=== PATIENT | female | born 1965 | race Caucasian/White ===

== ENCOUNTER 2016-07-13 14:27 | Emergency (ER) | payer OTHER ==
[~2016-07-13] VITALS: Ht 154.9 cm; Wt 103.3 kg
[~2016-07-13 14:27] MED LIST: ASCO500T16 PO
[2016-07-13 14:39] VITALS: Ht 154.9 cm; Wt 103.3 kg
[2016-07-13] MEDS ORDERED: DEXAMETHASONE SOD INJ 10 MG/ML VIAL IM ONE (15:00)
[2016-07-13] MEDS ORDERED: ALBUT/IPRATROP 3MG/0.5MG NEB 3 ML VIAL INH ONE (15:00)
[2016-07-13 15:12] VITALS: PULSE 68; O2SAT 100
[2016-07-13] MEDS ORDERED: METH1TAB81 PO (15:24)
[2016-07-13] MEDS ORDERED: CITA40TA4 PO (15:24)
[2016-07-13] MEDS ORDERED: FENO54TA PO (15:24)
[2016-07-13] MEDS ORDERED: DOXY1TAB6 PO (15:24)
[2016-07-13] MEDS ORDERED: Ventolin HFA INH (15:24)
[2016-07-13] MEDS ORDERED: AZITTAB PO (15:26)
--- NOTE | 2016-07-13 15:58 | DIAGNOSTIC IMAGING REPORT ---
CHEST 2 VIEWS ROUTINE CLINICAL HISTORY: Cough. COMPARISON STUDY: No previous studies for comparison. FINDINGS: Lung volumes are normal. No pneumothorax or pleural effusion is present. There is no evidence of pulmonary edema. Borderline cardiomegaly is noted. Lungs are clear. IMPRESSION: No acute cardiopulmonary findings. Electronically signed by: Bert Mccormick M.D. 07/13/2016 3:56 PM Dictated Date/Time: 07/13/2016 3:53 PM
[2016-07-13 18:03] VITALS: BP 137/71; PULSE 73; TEMP 36.5; O2SAT 100
--- NOTE | 2016-07-13 20:08 | EMERGENCY ROOM VISIT NOTE ---
History First contact with patient: 14:42 Chief Complaint: RESPIRATORY PROBLEMS Stated Complaint: ASTHMA Nursing Triage Summary: Pt sent by urgent care in [facility] who told her "I need to be admitted because I'm having an asthma attack." Sx for a couple days, worse today. "H/A from coughing." History of Present Illness The patient is a 50 year old female who presents to the Emergency Room with complaints of persistent productive cough, runny nose, sinus congestion and wheezing. The patient reports a history of asthma. She cannot remember the last time she had to use an inhaler. She was seen 3 days ago at an urgent care center in [place]. She was prescribed a Z-Juan and a steroid taper. The patient reports that she did have some mild relief of her symptoms until this morning when she woke up with the same symptoms. She was seen at the urgent care center in [place] and referred here for further evaluation. She denies any chest tightness or chest pain. She has had chills, but has not checked her temperature. She rates her overall discomfort a 9 out of 10. The patient reports that she has never been admitted for an asthma exacerbation. Review of Systems 10 system review was performed and was negative except for pertinent positives and negatives as indicated in history of present illness Past Medical/Surgical History Medical Problems: (1) Asthma (2) Tobacco Use Disorder Surgical Problems: (1) No history of previous surgery Family History Unremarkable Social History Smoking Status: Former Smoker Alcohol Use: none Marital Status: single Housing Status: lives with family Occupation Status: unemployed Current/Historical Medications Scheduled Azithromycin (Zithromax Z-Juan), 1 PKT PO UD Citalopram Hydrobromide (Citalopram Hydrobromide), 40 MG PO DAILY Doxycycline Hyclate (Doxycycline Hyclate), 100 MG PO BID Fenofibrate (Tricor), 54 MG PO DAILY Methylprednisolone (Medrol), 4 MG PO UD Oxcarbazepine (Trileptal), 900 MG PO BID Scheduled PRN [Ventolin HFA], 2 PUFFS INH Q4H PRN for SOB/Wheezing Allergies Coded Allergies: Metronidazole (Verified Allergy, Severe, TOUNGE SWELLING, 04/22/12) Aspirin (Verified Allergy, Intermediate, HIVES, 04/22/12) Penicillins (Verified Allergy, Intermediate, HIVES, 04/22/12) Codeine (Verified Allergy, Mild, HIVES, 04/22/12) Morphine (Verified Allergy, Mild, "TENSES NERVES", 04/22/12) Physical Exam Vital Signs Date Time Temp Pulse Resp B/P Pulse Ox O2 Delivery O2 Flow Rate FiO2 07/13/16 18:03 36.5 73 20 137/71 100 07/13/16 18:02 73 20 137/71 100 Room Air 07/13/16 16:27 82 20 137/63 100 Room Air 07/13/16 15:12 68 20 100 Room Air 07/13/16 15:11 66 22 155/80 97 Room Air 07/13/16 14:39 36.5 84 22 168/90 97 Room Air Physical Exam CONSTITUTIONAL: Healthy and well nourished. Alert and oriented X 3 with positive affect. Patient does not acute any acute respiratory distress. HEENT: Normocephalic, atraumatic. Pupils equal, round and reactive. Ears and nares are clear except for mild bulging of the TMs. No air-fluid levels or serous/purulent effusion. OROPHARYNX: Mild posterior pharyngeal erythema without tonsillar hypertrophy or exudates. NECK: Full active range of motion without discomfort. No JVD or carotid bruits. RESPIRATORY: Clear to auscultation bilaterally with mild end expiratory wheezing. No crackles, rhonchi or stridor. CARDIOVASCULAR: Regular rate and rhythm with no murmurs, rubs or gallops. GASTROINTESTINAL: Bowel sounds present in all quadrants. MUSCULOSKELETAL: Full range of motion of all joints without discomfort. INTEGUMENTARY: No rash or other significant dermatologic conditions noted. HEMATOLOGIC: No ecchymosis or petechiae noted. NEUROLOGIC: No focal neurologic deficits noted. Medical Decision & Procedures ER Provider Diagnostic Interpretation: My interpretation of a two-view chest x-ray does not show any consolidations, pneumothorax or cardiomegaly. Radiologist report is as follows: CHEST 2 VIEWS ROUTINE CLINICAL HISTORY: Cough. COMPARISON STUDY: No previous studies for comparison. FINDINGS: Lung volumes are normal. No pneumothorax or pleural effusion is present. There is no evidence of pulmonary edema. Borderline cardiomegaly is noted. Lungs are clear. IMPRESSION: No acute cardiopulmonary findings. Medications Administered Medications (Trade) Dose Ordered Sig/Jonathan Route Start Time Stop Time Status Last Admin Dose Admin Albuterol/ Ipratropium (Duoneb) 12 ml ONE ONCE INH 07/13/16 15:00 07/13/16 15:01 DC 07/13/16 15:12 12 ML Dexamethasone Sodium Phosphate (Decadron Inj) 10 mg NOW ONCE IM 07/13/16 15:00 07/13/16 15:01 DC 07/13/16 14:58 10 MG ED Course Patient history and physical exam were performed. Nurse's notes were reviewed. Vital signs were reviewed and were normal with an O2 saturation of 97% on room air. The patient is hypertensive. She is not tachycardic or febrile. A two-view chest x-ray does not show any consolidations. An hour-long DuoNeb treatment was administered. Pretreatment peak flow was 200, and post treatment was 250. The patient reports significantly better with the DuoNeb treatment. She feels well enough to go home. The case was further discussed with back to, ED attending physician. I also called the [facility] urgent care center, they report that the patient's O2 saturation on room air at the time of triage was 95%. She did receive a unit dose DuoNeb treatment in our office. They were concerned because she had persistent wheezing, however the patient refused ambulance transport. Because the patient does feel better at this point, I do feel that she can be discharged. She was encouraged to continue her current antibiotics and prednisone as previously prescribed by her PCP. She was encouraged to administer her albuterol home nebulizer every 4 hours. Follow-up with her PCP for close reevaluation in the next 24-48 hours, and return to the emergency department for any significantly worsening symptoms. The patient was happy with plan of care, and voiced understanding of all discharge instructions. Medical Decision At this point, I do not feel the patient requires hospitalist evaluation. She reports an improvement of her symptoms with her DuoNeb treatment. She was instructed to return for any worsening symptoms. I do feel that the patient is at low risk for pulmonary emboli. Her symptoms are most consistent with a recent upper respiratory infection. Impression Primary Impression: Asthmatic bronchitis Departure Information Referrals Chapis Hayes M.D. (PCP) Patient Instructions A Signature Page, My [facility]
[2016-07-13] MEDS ORDERED: SIMV20TA5 PO (22:34)
[2016-07-13] MEDS ORDERED: OXCA300T2 PO (22:34)
[2016-07-13] MEDS ORDERED: CITA20TA9 PO (22:34)
== END 2016-07-13 18:04 | disposition home or self-care (01) ==
LOC: C.EDB 14:29 → C.EDC 18:04
DX: J45.909 Unspecified asthma, uncomplicated (principal); Z87.891 Personal history of nicotine dependence; Z79.899 Other long term (current) drug therapy

== ENCOUNTER 2022-02-25 11:14 | Observation (INO) ==
--- NOTE | 2022-02-25 11:31 | Emergency Department Note ---
Impression & Plan Hypoxemia, Acute kidney injury, Chest pain ED Provider Note NAME: ANILA RIDDLE AGE: 56 SEX: F : 1965 ARRIVES VIA: Ambulance INFORMANT: Patient, ED PROVIDER(S): Anton Urbina MD Chief Complaint: Chest pain HPI: Patient initially begins by stating that she was having some diffuse abdominal pain that began Wednesday was fairly constant with associated nausea vomiting and diarrhea. The patient states that that seemed to resolve last evening. No stream or well water no recent falls or known sick contacts. The patient presented today to urgent care with chest pain and nausea vomiting. Patient does have a remote history of asthma but denies any history of DVT or PE no leg swelling recent surgeries procedures hospitalizations. The patient described chest pain that she had as a heaviness 8 out of 10 in severity was left center center. Unsure as whether or not this was exertional at all. Patient did receive 4 baby aspirin and nitro. This resolved her pain. Patient denies any fevers or chills. The patient had been placed on supplemental nasal cannula oxygen but no documented hypoxemia. Patient denies any alcohol or tobacco use. Patient has no current chest or abdominal pain but does have some slight residual nausea. Patient is not vaccinated for COVID-19 but denies fevers chills cough or sore throat ROS: See HPI for pertinent positives and negatives. A total of 10 systems were revi ewed and otherwise negative. Past medical history: See below Surgical history: See below Social history: See below Physical Exam: GENERAL: NAD, wearing a mask, non-toxic. Obese. EYE EXAM: Normal conjunctiva. PERRL, no anisocoria and EOM's grossly intact w/o pain. NECK: Supple, no nuchal rigidity, no adenopathy, non-tender. No signs of meningismus. FROM of the neck with good chin to chest and neck extension. No stridor. LUNGS: Clear to auscultation. Normal chest wall mechanics. HEART: NSR, no MRG. ABDOMEN: Abdomen soft, non-tender, normo-active bowel sounds, no masses, no rebound or guarding. BACK: No CVA TTP. SKIN: No rashes and no bruising. UPPER EXTREMITIES: Upper extremities are grossly normal. LOWER EXTREMITIES: Grossly normal, no edema. NEURO EXAM: A&O x3, cranial nerves II-XII grossly intact, normal speech, moves all 4 extremities. Differential diagnoses: Cardiac ischemia, aortic dissection, pulmonary embolism, pneumothorax, pneumonia, pericarditis, myocarditis, esophageal rupture, GERD, cholecystitis, pancreatitis, musculoskeletal, as well as other pathologies. Course: Patient was seen and evaluated the bedside. Full history physical exam was performed. EKG interpreted by me Normal sinus rhythm, rate of 70 normal NC and QRS, normal axis prolonged QT Imaging Studies: See Below Cardiac monitoring: An order was placed for continuous cardiac monitoring. The monitor shows a rate of 72 with sinus rhythm. MDM: Patient presented due to concern for chest pain. Currently chest pain-free. Blood work is obtained along with an EKG troponin chest x-ray. COVID swab also obtained in addition to D-dimer. The patient was ordered IV fluids. Patient with no signs of obvious ischemia seen on EKG. Patient has a normal white count H&H and platelet count. The patient's kidney function shows a creatinine 2.3. No priors for comparison. Patient is mildly hypokalemic 3.3. Patient was noted to be hypoxemic at 85 with taken off supplemental nasal cannula. Given the patient's hypoxemia believe the patient would benefit from treatment. The patient was ordered magnesium and Solu- Medrol. No breathing treatments given the chest pain as this may exacerbate any chest pain with beta agonism at this time. Ppatient was ordered additional IV fluids and the patient's blood pressure did improve. D-dimer is not elevated. No signs of DVT on exam. Upon reassessment the patient does feel improved. She is maintaining good saturations on 2 L supplemental nasal cannula. I did speak with MIKHAIL Nguyen and the patient was admitted by Dr. Richards. Critical Care: I have personally spent 35 minutes of critical care time in direct management of this patient. This includes bedside care, interpretation of diagnostic studies, and testing, discussion with consultants, patient, and family members, and other require inpatient management activities. This 35 minutes is in excess of all separately billable procedures. Past Med/Surg History Medical History (Updated 02/25/22 @ 14:07 by Anton Urbina MD) Acute kidney injury Asthma Chest pain Nausea Surgical History No history of previous surgery Social History Smoking Status: Former smoker Feels Safe at Home: Yes Allergies Allergies Allergy/AdvReac Type Severity Reaction Status Date / Time metronidazole Allergy Severe TOUNGE Verified 04/22/12 21:34 SWELLING aspirin Allergy Intermediate HIVES Verified 04/22/12 21:01 Penicillins Allergy Intermediate HIVES Verified 04/22/12 21:34 codeine Allergy Mild HIVES Verified 04/22/12 21:01 morphine Allergy Mild "TENSES Verified 04/22/12 21:01 NERVES" Home Meds Home Medications Medication Instructions Recorded Confirmed atorvastatin 10 mg tablet 10 mg PO HS 02/25/22 02/25/22 duloxetine 60 mg capsule,delayed 120 mg PO DAILY 02/25/22 02/25/22 release ergocalciferol (vitamin D2) 1,250 1,250 mcg PO WK 02/25/22 02/25/22 mcg (50,000 unit) capsule fenofibrate 160 mg tablet 160 mg PO DAILY 02/25/22 02/25/22 hydroxyzine pamoate 25 mg capsule 75 mg PO HS PRN Sleep 02/25/22 02/25/22 lisinopril 20 mg tablet 20 mg PO QAM 02/25/22 02/25/22 nicotine 21 mg/24 hr daily 21 mg transdermal DAILY 02/25/22 02/25/22 transdermal patch nystatin 100,000 unit/gram topical 1 applic topical BID PRN . 02/25/22 02/25/22 powder oxcarbazepine 300 mg tablet 900 mg PO BID 02/25/22 02/25/22 prazosin 1 mg capsule 1 mg PO HS 02/25/22 02/25/22 Results & Data (ED) Vital Signs Vital Signs - 24 hr 02/25/22 11:41 02/25/22 11:41 02/25/22 12:29 Temperature 36.6 C Temperature Source Oral Pulse Rate 64 72 Pulse Rate [Apical] Pulse Rhythm Regular Pulse Rhythm [Apical] Pulse Strength Normal Pulse Strength [Apical] Respiratory Rate 20 20 Respiratory Effort / Characteristics Non-Labored Respiratory Depth Normal Respiratory Pattern Regular Blood Pressure 91/36 L Blood Pressure [Right Arm] Blood Pressure Mean 54 Blood Pressure Mean [Right Arm] Blood Pressure Position Lying Blood Pressure Position [Right Arm] Pulse Oximetry 99 99 99 Oxygen Delivery Method Nasal Cannula Nasal Cannula Nasal Cannula Oxygen Flow Rate 4 4 2 Sepsis Recent Fever Within 48 Hours No Sepsis New/Unexplained Change in Mental Status No Sepsis Action Taken by Nursing No Action Required 02/25/22 12:29 02/25/22 14:00 Temperature Temperature Source Pulse Rate Pulse Rate [Apical] 68 84 Pulse Rhythm Pulse Rhythm [Apical] Regular Regular Pulse Strength Pulse Strength [Apical] Normal Normal Respiratory Rate 18 20 Respiratory Effort / Characteristics Non-Labored Non-Labored Respiratory Depth Normal Normal Respiratory Pattern Regular Regular Blood Pressure Blood Pressure [Right Arm] 91/36 L 109/43 L Blood Pressure Mean Blood Pressure Mean [Right Arm] 54 65 Blood Pressure Position Blood Pressure Position [Right Arm] Lying Pulse Oximetry 99 100 Oxygen Delivery Method Nasal Cannula Nasal Cannula Oxygen Flow Rate 2 2 Sepsis Recent Fever Within 48 Hours Sepsis New/Unexplained Change in Mental Status Sepsis Action Taken by [facility] Medications Current Medication List: was personally reviewed by me Laboratory Data Attestation: I reviewed the patient's lab results. Result diagrams: 02/25/22 11:28 02/25/22 11:28 Lab Results 02/25/22 02/25/22 02/25/22 Range/Units 11:28 11:28 11:28 WBC 9.83 (4.8-10.8) K/ul RBC 4.08 (3.93-5.22) M/uL Hgb 12.5 (12.0-16.0) g/dl Hct 36.3 (34.1-44.9) % MCV 89.0 (80.0-100.0) fL MCH 30.6 (25.0-34.0) pg MCHC 34.4 (32.0-36.0) g/dL RDW Std Deviation 39.0 (36.4-46.3) fL RDW Coeff of Frankie 12.3 (11.5-14.5) % Plt Count 245 (130-400) K/uL MPV 10.0 (9.4-12.3) fL Immature Gran % (Auto) 0.8 % Neut % (Auto) 58.3 % Lymph % (Auto) 27.5 % [place] % (Auto) 11.5 % Eos % (Auto) 1.5 % Baso % (Auto) 0.4 % Neut # (Auto) 5.73 (1.4-6.5) K/uL Lymph # (Auto) 2.70 (1.2-3.4) K/uL [place] # (Auto) 1.13 H (0.24-0.82) K/uL Eos # (Auto) 0.15 (0-0.50) K/uL Baso # (Auto) 0.04 (0-0.2) K/uL Immature Gran # (Auto) 0.08 H (0.00-0.02) K/uL PT 10.5 (9.0-12.0) Seconds INR 1.0 (0.9-1.1) APTT 22.7 (21.0-31.0) Seconds PTT Ratio 0.8 D-Dimer 350 (0-500) ug/L FEU Sodium 136 (136-145) mmol/L Potassium 3.3 L (3.5-5.1) mmol/L Chloride 101 (98-107) mmol/L Carbon Dioxide 24 (21-32) mmol/L Anion Gap 11 (3-11) BUN 27 H (6-23) mg/dl Creatinine 2.36 H (0.6-1.2) mg/dl Est Cr Clr Drug Dosing 34.0 ml/min Est GFR ( Amer) 25.6 ml/min Est GFR (Non-Af Amer) 22.1 ml/min BUN/Creatinine Ratio 11.4 (10-20) Glucose 153 H (70-99(Fasting)) mg/dl Calcium 8.5 (8.5-10.1) mg/dl Total Bilirubin 0.7 (0.2-1.0) mg/dl AST 19 (13-39) U/L ALT 13 (7-52) U/L Alkaline Phosphatase 57 (34-104) U/L Troponin I High Sens 4.7 (0-14) pg/ml Total Protein 6.6 (6.0-8.3) gm/dl Albumin 3.8 (3.4-5.0) gm/dl Globulin 2.8 (2.5-4.0) gm/dl Albumin/Globulin Ratio 1.4 (0.9-2) Lipase 16 (11-82) U/L SARS-CoV-2, RNA, NAAT (NEGATIVE) 02/25/22 Range/Units 12:25 WBC (4.8-10.8) K/ul RBC (3.93-5.22) M/uL Hgb (12.0-16.0) g/dl Hct (34.1-44.9) % MCV (80.0-100.0) fL MCH (25.0-34.0) pg MCHC (32.0-36.0) g/dL RDW Std Deviation (36.4-46.3) fL RDW Coeff of Frankie (11.5-14.5) % Plt Count (130-400) K/uL MPV (9.4-12.3) fL Immature Gran % (Auto) % Neut % (Auto) % Lymph % (Auto) % [place] % (Auto) % Eos % (Auto) % Baso % (Auto) % Neut # (Auto) (1.4-6.5) K/uL Lymph # (Auto) (1.2-3.4) K/uL [place] # (Auto) (0.24-0.82) K/uL Eos # (Auto) (0-0.50) K/uL Baso # (Auto) (0-0.2) K/uL Immature Gran # (Auto) (0.00-0.02) K/uL PT (9.0-12.0) Seconds INR (0.9-1.1) APTT (21.0-31.0) Seconds PTT Ratio D-Dimer (0-500) ug/L FEU Sodium (136-145) mmol/L Potassium (3.5-5.1) mmol/L Chloride (98-107) mmol/L Carbon Dioxide (21-32) mmol/L Anion Gap (3-11) BUN (6-23) mg/dl Creatinine (0.6-1.2) mg/dl Est Cr Clr Drug Dosing ml/min Est GFR ( Amer) ml/min Est GFR (Non-Af Amer) ml/min BUN/Creatinine Ratio (10-20) Glucose (70-99(Fasting)) mg/dl Calcium (8.5-10.1) mg/dl Total Bilirubin (0.2-1.0) mg/dl AST (13-39) U/L ALT (7-52) U/L Alkaline Phosphatase (34-104) U/L Troponin I High Sens (0-14) pg/ml Total Protein (6.0-8.3) gm/dl Albumin (3.4-5.0) gm/dl Globulin (2.5-4.0) gm/dl Albumin/Globulin Ratio (0.9-2) Lipase (11-82) U/L SARS-CoV-2, RNA, NAAT NEGATIVE (NEGATIVE) Administered Medications Discontinued Medications Sodium Chloride (Nss 1000ml) 1,000 mls @ 999 mls/hr IV .Q1H1M STA Stop: 02/25/22 12:39 Last Admin: 02/25/22 12:35 Dose: 999 mls/hr Documented By: [facility] Ondansetron HCl (Ondansetron Inj 2 Mg/Ml 2 Ml Vial) 4 mg IV NOW STA Stop: 02/25/22 11:40 Last Admin: 02/25/22 12:34 Dose: 4 mg Documented By: [facility] Imaging Data Radiologist's Impression: Chest X-Ray 02/25/22 11:39 XR chest 1V portable CLINICAL HISTORY: Atypical chest pain. COMPARISON STUDY: Chest radiograph July 13, 2016. FINDINGS: Lung volumes are normal. Lungs are clear. There is no pneumothorax or pleural effusion. Borderline cardiomegaly is noted. Mediastinal contours are normal. There is no evidence for pulmonary edema. Interstitial prominence is likely within normal limits. IMPRESSION: No acute cardiopulmonary findings. Interstitial prominence, likely within normal limits. ACT 112: Negative or not required by law. Electronically signed by: Bert Mccormick M.D. 02/25/2022 12:14 PM Discharge Plan Visit Data Chief Complaint: Cardiac Assessment ED Provider: Anton Urbina Discharge Problem: Hypoxemia, Acute kidney injury, Chest pain Patient Disposition: Admitted As Inpatient Forms Stand Alone Forms: My [facility] Prescriptions Prescriptions: No Action atorvastatin 10 mg tablet 10 mg PO HS prazosin 1 mg capsule 1 mg PO HS lisinopril 20 mg tablet 20 mg PO QAM oxcarbazepine 300 mg tablet 900 mg PO BID nicotine 21 mg/24 hr patch 24 hour 21 mg transdermal DAILY ergocalciferol (vitamin D2) 1,250 mcg (50,000 unit) capsule 1,250 mcg PO WK nystatin 100,000 unit/gram powder 1 applic TOPICAL BID PRN (Reason: .) hydroxyzine pamoate 25 mg capsule 75 mg PO HS PRN (Reason: Sleep) duloxetine 60 mg capsule,delayed release(DR/EC) 120 mg PO DAILY fenofibrate 160 mg tablet 160 mg PO DAILY Referrals Referrals: PCP,NO [Physician] -
[2022-02-25] MEDS ORDERED: SODIUM CHLORIDE 0.9% 1000ML 1,000 ML IV STA (11:39)
[2022-02-25] MEDS ORDERED: ONDANSETRON INJ 2 MG/ML 2 ML VIAL IV STA (11:39)
--- NOTE | 2022-02-25 12:15 | XRay Report ---
XR chest 1V portable CLINICAL HISTORY: Atypical chest pain. COMPARISON STUDY: Chest radiograph July 13, 2016. FINDINGS: Lung volumes are normal. Lungs are clear. There is no pneumothorax or pleural effusion. Bor derline cardiomegaly is noted. Mediastinal contours are normal. There is no evidence for pulmonary ed barbara. Interstitial prominence is likely within normal limits. IMPRESSION: No acute cardiopulmonary findings. Interstitial prominence, likely within normal limits. ACT 112: Negative or not required by law. Electronically signed by: Bert Mccormick M.D. 02/25/2022 12:14 PM
[2022-02-25 12:17] LABS: Basophils # (auto) 0.04 K/uL (0-0.2); Basophils % (auto) 0.4 %; Eosinophils # (auto) 0.15 K/uL (0-0.50); Eosinophils % (auto) 1.5 %; Hematocrit (blood only) 36.3 % (34.1-44.9); Hemoglobin 12.5 g/dl (12.0-16.0); Immature Granulocytes # (auto) 0.08 K/uL (0.00-0.02); Immature Granulocytes % (auto) 0.8 %; Lymphocytes % (auto) 27.5 %; Mean Corpuscular Hemoglobin 30.6 pg (25.0-34.0); Mean Corpuscular Hgb Conc 34.4 g/dL (32.0-36.0); Monocytes # (auto) 1.13 K/uL (0.24-0.82); Monocytes % (auto) 11.5 %; Neutrophils # (auto) 5.73 K/uL (1.4-6.5); Neutrophils % (auto) 58.3 %; Platelet Count 245 K/uL (130-400); RDW Coefficient of Variation 12.3 % (11.5-14.5); Red Blood Count 4.08 M/uL (3.93-5.22); White Blood Count 9.83 K/ul (4.8-10.8)
[2022-02-25 12:29] LABS: D Dimer 350 ug/L FEU (0-500); Partial Thromboplastin Ratio 0.8; Partial Thromboplastin Time 22.7 Seconds (21.0-31.0); Prothrombin Time 10.5 Seconds (9.0-12.0)
[2022-02-25 12:34] LABS: Troponin I High Sensitivity 4.7 pg/ml (0-14)
[2022-02-25 12:39] LABS: Albumin Globulin Ratio 1.4 (0.9-2); Albumin Level 3.8 gm/dl (3.4-5.0); BUN Creatinine Ratio 11.4 (10-20); Bilirubin,Total 0.7 mg/dl (0.2-1.0); Calcium 8.5 mg/dl (8.5-10.1); Est GFR (African American) 25.6 ml/min; Est GFR (Non-African American) 22.1 ml/min; Globulin 2.8 gm/dl (2.5-4.0); Potassium 3.3 mmol/L (3.5-5.1); Total Protein 6.6 gm/dl (6.0-8.3)
--- NOTE | 2022-02-25 13:06 | History & Physical Report ---
Date of Service February 25, 2022 Assessment & Plan (1) Abdominal pain: (2) Acute kidney injury: (3) Nausea and vomiting: (4) Chest pain: (5) Diarrhea: (6) Hypoxemia: (7) Seizures: (8) Hyperlipidemia: (9) HTN (hypertension): Plan Ms. Osman is a 56 year old female who presented with N/V/D, abdominal discomfort and chest pain. D-Dimer negative and no EKG changes. Trop trending. Abd CT ordered and acute symptom management. IV fluids and e-lyte replacement. Plan to return home after DC. Abdominal Pain Nausea and Vomiting Diarrhea: Diffused abdominal tenderness since Wednesday Abdominal CT without contrast ordered IV fluids 0.9% + 20 KCL @ 125ml/Hour K+: 3.3 Add 2 K riders. Recheck K+ level at 2100 1G Mg+ infused in ED. Nausea improved with IV Zofran; last emesis 02/23 @ 0400. Will cover empirically with IV abx (has PCN and Metronidazole allergy) Stool culture ordered Acute Kidney Injury: likely related to dehydration; current creatinine 2.36 Baseline Creatinine 10/24: 0.6 Start Fluid maintenance: 0.9% NS + 20mEq KCL @ 125ml/hour Received 1L bolus in ED Chest Pain: Resolved. Chest pain 02/11 across anterior chest. D-Dimer negative 350 EMS gave 4 oral baby ASA and nitro spray SL which eliminated the chest pain Will trend Troponin levels; initial troponin 4.7 No EKG changes, QTc 496. Repeat EKG in AM. Hypoxemia: CXR negative Has H/O asthma - has Albuterol PRN or rescue at home. Has not used in over a month Will hold on giving breathing treatment until chest pain fully resolved. 2LNC 100% CXR in AM covid negative H/O Seizures: Sees Dr. Cespedes outpatient. Takes Trileptal; 900 mg PO BID; monitor renal function. Discussed with Pharmacy; no need to dose adjust yet unless CrCL < 30 or worsening urine output. Has not had any seizure active x3 years HTN: Takes Lisinopril; hold until renal function improved Takes Prazosin; hold as pt received IV fluids and was hypotensive in ED. Reevaluate restarting in AM. Hyperlipidemia: Stable: Continue Atorvastatin and Fenofibrate Depression: Takes Cymbalta. Disposition: Code Status: Full code PCP: Dr. Peguero VTE Prophylaxis: Heparin SQ Next of Kin/Contact: Shonna Welsh (Niece): [phone] Plan to return home at [place] History of Present Illness Chief Complaint: abdominal and chest pain Primary Care Provider: Mark Orozco PA-C Ms. Osman is a 56 year old female who presented to the [facility] ED from Urgent Care with N/V/D and associated chest pain. The patient states that her abdominal discomfort started on Wednesday evening around 1800 and by midnight Wednesday morning 02/24, she had been experiencing vomiting and diarrhea reportedly 12 times on Wednesday. She reports dark green. Her last episode of emesis was Friday 02/23 at 0400. Currently still having diarrhea. She has not eaten anything, but is able to keep Gatorade and some water down. This morning, she got up around 0700 and she started to feel that an 'elephant was sitting on her chest' and was having tightness in her chest. She then proceeded to urgent care and they sent her to [facility] via EMS. EMS gave 4 oral baby ASA and nitro spray SL which eliminated the chest pain. She was feeling some nausea but the Zofran has helped. She has not had any vomiting since she has been here. She has an additional PMH that includes seizures, HLD, Depression, HTN, obesity, and tobacco use. She has not had a seizure for at least 3 years. She does follow with Dr. Cespedes with Neurology. Currently, she is lying in her bed, in no apparent distress. She denies VALENCIA, dizziness, palpitations, chest pain, palpitations, visual or hearing changes, swelling, wheezing. Patient will be admitted under medicine services for further evaluation and management. Please see A/P for further details. Allergies Allergy/AdvReac Type Severity Reaction Status Date / Time bee venom protein (honey bee) Allergy Severe Anaphylaxis Unverified 02/25/22 14:33 metronidazole Allergy Severe TOUNGE Verified 02/25/22 14:33 SWELLING Penicillins Allergy Severe Anaphylaxis Verified 02/25/22 14:40 aspirin Allergy Intermediate HIVES Verified 02/25/22 14:33 codeine Allergy Mild HIVES Verified 02/25/22 14:33 morphine Allergy Mild "TENSES Verified 02/25/22 14:33 NERVES" Home Medications Medication Instructions Recorded Confirmed Type atorvastatin 10 mg tablet 10 mg PO HS 02/25/22 02/25/22 History duloxetine 60 mg capsule,delayed 120 mg PO HS 02/25/22 02/25/22 History release fenofibrate 160 mg tablet 160 mg PO HS 02/25/22 02/25/22 History lisinopril 20 mg tablet 20 mg PO HS 02/25/22 02/25/22 History nicotine 21 mg/24 hr daily 21 mg transdermal DAILY 02/25/22 02/25/22 History transdermal patch nystatin 100,000 unit/gram topical 1 applic topical BID PRN yeast 02/25/22 02/25/22 History powder infection oxcarbazepine 300 mg tablet 900 mg PO BID 02/25/22 02/25/22 History prazosin 1 mg capsule 1 mg PO HS 02/25/22 02/25/22 History cetirizine 10 mg tablet 10 mg PO QAM 14 days #14 tabs 02/27/22 Rx Past Med/Surg History Medical History Abdominal pain Acute kidney injury Asthma Chest pain Diarrhea Diarrhea HTN (hypertension) Hyperlipidemia Nausea Nausea and vomiting Seizures Surgical History No history of previous surgery Social History Smoking Status: Former smoker Hx Alcohol Use: No Hx Substance Use: No Preferred Language: Malawian Ed Case Manager Required: No Beliefs That Will Affect Care: None Current Living Situation: Family Feels Safe at Home: Yes Assistive Devices: None Review of Systems Review of Systems: Neuro: (-) Falls, trauma, slurred speech HEENT: (-) VALENCIA, dizziness, dysphagia, visual or auditory changes CV: (-) CP, palpitations, swelling Resp: (-) SOB (-) wheezine GI: (-) appetite changes, (+) N/V/D. : (-) urinary changes Skin: (-) rashes Psych: (-) anxiety, (+) depression Physical Exam Physical Exam: Neuro: AAOx4, PERRLA, no aphagia, memory changes, CNII-XII grossly intact HEENT: head normocephalic, moist mucus membranes CV: S1/S2, (-) M/G/R, (-) edema, cap refill < 3 seconds Resp: Lungs CTA in all coreas. On RA GI: Abdomen large S/distended, tender with palpation in lower quadrants, Ax4 bowel sounds, (-) CVA tenderness Musculoskeletal: 5/5 B/L UE strength, 5/5 B/L LE strength. No gait disturbance Skin: (-) rashes , (-) erythema. Psych: euthymic mood Results & Data Results & Data ([facility]) Vital Signs (Past 12 Hours) Vital Signs Temp Pulse Pulse Resp BP BP Pulse Ox 02/25/22 12:29 68 18 91/36 L 99 02/25/22 12:29 36.6 C 72 20 91/36 L 99 02/25/22 11:41 64 20 99 02/25/22 11:41 99 O2 Del Method O2 Flow Rate 02/25/22 12:29 Nasal Cannula 2 02/25/22 12:29 Nasal Cannula 2 02/25/22 11:41 Nasal Cannula 4 02/25/22 11:41 Nasal Cannula 4 Laboratory Results Short CBC 02/25/22 Range/Units 11:28 WBC 9.83 (4.8-10.8) K/ul Hgb 12.5 (12.0-16.0) g/dl Hct 36.3 (34.1-44.9) % Plt Count 245 (130-400) K/uL BMP 02/25/22 11:28 Sodium 136 Potassium 3.3 L Chloride 101 Carbon Dioxide 24 BUN 27 H Creatinine 2.36 H Glucose 153 H Calcium 8.5 Liver Function 02/25/22 Range/Units 11:28 Total Bilirubin 0.7 (0.2-1.0) mg/dl AST 19 (13-39) U/L ALT 13 (7-52) U/L Alkaline Phosphatase 57 (34-104) U/L Albumin 3.8 (3.4-5.0) gm/dl Diagnostic Findings Chest X-Ray 02/25/22 11:39 XR chest 1V portable CLINICAL HISTORY: Atypical chest pain. COMPARISON STUDY: Chest radiograph July 13, 2016. FINDINGS: Lung volumes are normal. Lungs are clear. There is no pneumothorax or pleural effusion. Borderline cardiomegaly is noted. Mediastinal contours are normal. There is no evidence for pulmonary edema. Interstitial prominence is likely within normal limits. IMPRESSION: No acute cardiopulmonary findings. Interstitial prominence, likely within normal limits. ACT 112: Negative or not required by law. Electronically signed by: Bert Mccormick M.D. 02/25/2022 12:14 PM ECG Additional Comments: NSR Vent. Rate : 070 BPM P-R Int : 144 ms QRS Dur : 090 ms QT Int : 460 ms QTc Int : 496 ms Code Status & VTE Plan Code Status Full code in the event of cardiac or respiratory arrest VTE Prophylaxis Plan VTE Prophylaxis will be ordered: Yes Supervising Physician Co-Signing Physician Notes Attending Addendum: delayed entry date of service noted above care coordinated with MIKHAIL Angel please refer to her notes for full details, I agree with her notes patient seen and examined, records reviewed by myself as well on exam, patient seen resting in bed, comfortable has mild abd discomfort no other symptoms diagnoses and plan of care as per MIKHAIL Angel's notes Cole Richards MD
[2022-02-25] MEDS ORDERED: methylPREDNISolone 125 MG/2 ML VIAL IV STA (13:12)
[2022-02-25] MEDS ORDERED: MAGNESIUM SULFATE / D5W 1 GM/100 ML BAG IV STA (13:12)
[2022-02-25] MEDS ORDERED: SODIUM CHLORIDE 0.9% 1000ML 1,000 ML IV ONE (13:12)
--- NOTE | 2022-02-25 13:18 | Electrocardiogram Report ---
Test Reason : Blood Pressure : / mmHG Vent. Rate : 070 BPM Atrial Rate : 070 BPM P-R Int : 144 ms QRS Dur : 090 ms QT Int : 460 ms P-R-T Axes : 060 045 068 degrees QTc Int : 496 ms Normal sinus rhythm Low voltage QRS Abnormal ECG No previous ECGs available Confirmed by Remington Corona ([id number]) on 02/25/2022 1:18:35 PM Referred By: REFERRED SELF Confirmed By:Remington Corona
[2022-02-25] MEDS: POTASSIUM CHLORIDE / WTR 10 MEQ/100 ML PLCT IV SCH ×2 (15:31→16:49)
--- NOTE | 2022-02-25 16:36 | CT Scan Report ---
CT OF THE ABDOMEN WITHOUT CONTRAST CLINICAL HISTORY: Upper abdominal pain. COMPARISON STUDY: No previous studies for comparison. TECHNIQUE: Axial images of the abdomen were obtained without IV contrast. Automated exposure control was utilized for the study. A dose lowering technique was utilized adhering to the principles of ALA RA. FINDINGS: Lung bases are unremarkable. No pneumatosis, free air or portal venous gas is identified wi thin the abdomen. Evaluation of the abdomen is suboptimal on this unenhanced exam. There is no biliar y ductal dilatation status post cholecystectomy. There is hepatic steatosis. The spleen, adrenal glan ds and pancreas are unremarkable as is the left kidney. There is no hydronephrosis. A water attenuati on 3.3 cm lesion within the upper pole of the right kidney is suboptimally assessed on this unenhance d exam but likely reflects a cyst. There is no abdominal lymphadenopathy or ascites. There is mild di latation of several small bowel loops, measuring up to 4.1 cm. The small bowel is partially imaged on this examination. No acute fracture or suspicious lesion within the visualized skeletal structures i s present. IMPRESSION: 1. Several loops of mildly dilated small bowel, partially imaged on this abdominal CT. No transition point identified. The findings do not suggest a small bowel obstruction however if persistent symptom s, follow-up KUB or CT of the abdomen and pelvis is recommended. 2. Hepatic steatosis. ACT 112: Negative or not required by law. Electronically signed by: Bert Mccormick M.D. 02/25/2022 4:35 PM
[2022-02-25] MEDS ORDERED: ALUMINUM/MAGNESIUM SUSP 30 ML UDC PO PRN (18:13)
[2022-02-25] MEDS ORDERED: PANTOprazole 40 MG in SYRINGE 0 ML IV ONE (18:13)
[2022-02-25] MEDS ORDERED: CETIRIZINE HCL 10 MG TABLET PO ONE (18:13)
[2022-02-25] MEDS ORDERED: diphenhydrAMINE Capsule 25 MG CAP PO PRN (18:13)
[2022-02-25] MEDS ORDERED: NYSTATIN POWDER 15GM BTL EXT PRN (18:13)
[2022-02-25] MEDS ORDERED: diphenhydrAMINE 50 MG/ML VIAL IV STA (18:13)
[2022-02-25] MEDS: NSS + 20MEQ KCL 20 MEQ/1,000 ML BAG IV SCH (18:49)
[2022-02-25] MEDS ORDERED: ERGOCALCIFEROL 50,000 UNITS 1250 MCG CAP PO SCH (20:00)
[2022-02-25] MEDS: HEPARIN SOD 5,000 UNIT/0.5 ML VIAL SQ SCH (21:33)
[2022-02-25] MEDS: OXcarbazepine 150 MG TABLET PO SCH (21:34)
[2022-02-25] MEDS: DULoxetine HCL 60 MG CAP PO SCH (21:34)
[2022-02-25] MEDS: PROMETHAZINE HCL 12.5 MG in SODIUM CHLORIDE 0.9% 50 ML IV PRN (22:24)
[2022-02-26] MEDS: NSS + 20MEQ KCL 20 MEQ/1,000 ML BAG IV SCH ×3 (03:22→20:02)
[2022-02-26] MEDS: HEPARIN SOD 5,000 UNIT/0.5 ML VIAL SQ SCH ×3 (06:14→21:41)
[2022-02-26 06:34] LABS: Basophils # (auto) 0.03 K/uL (0-0.2); Basophils % (auto) 0.3 %; Eosinophils # (auto) 0.08 K/uL (0-0.50); Eosinophils % (auto) 0.9 %; Hematocrit (blood only) 33.4 % (34.1-44.9); Hemoglobin 11.4 g/dl (12.0-16.0); Immature Granulocytes # (auto) 0.06 K/uL (0.00-0.02); Immature Granulocytes % (auto) 0.7 %; Lymphocytes # (auto) 2.41 K/uL (1.2-3.4); Lymphocytes % (auto) 26.4 %; Mean Corpuscular Hemoglobin 30.6 pg (25.0-34.0); Mean Corpuscular Hgb Conc 34.1 g/dL (32.0-36.0); Mean Corpuscular Volume 89.8 fL (80.0-100.0); Mean Platelet Volume 9.6 fL (9.4-12.3); Monocytes # (auto) 0.87 K/uL (0.24-0.82); Monocytes % (auto) 9.5 %; Neutrophils # (auto) 5.68 K/uL (1.4-6.5); Neutrophils % (auto) 62.2 %; Platelet Count 221 K/uL (130-400); RDW Coefficient of Variation 11.9 % (11.5-14.5); RDW Standard Deviation 38.8 fL (36.4-46.3); Red Blood Count 3.72 M/uL (3.93-5.22); White Blood Count 9.13 K/ul (4.8-10.8)
[2022-02-26 06:56] LABS: Estimated Average Glucose 123 mg/dl; Hemoglobin A1C 5.9 % (4.5-5.6)
[2022-02-26 07:16] LABS: BUN Creatinine Ratio 23.3 (10-20); Creatinine Clr Calc Pharmacy 89.8 ml/min; Est GFR (African American) 82.3 ml/min; Magnesium 2.1 mg/dl (1.7-2.4); Phosphorus 2.9 mg/dl (2.5-4.9); Potassium 3.8 mmol/L (3.5-5.1)
[2022-02-26] MEDS: CETIRIZINE HCL 10 MG TABLET PO SCH (10:13)
[2022-02-26] MEDS: OXcarbazepine 150 MG TABLET PO SCH ×2 (10:13→20:02)
[2022-02-26] MEDS: PANTOprazole 40 MG in SYRINGE 0 ML IV SCH (10:14)
[2022-02-26] MEDS: NICOTINE 21 MG/24 HR TDSY TD SCH (10:15)
[2022-02-26 11:27] LABS: Adenovirus F 40/41 PCR Not Detected (NotDetected); Astrovirus PCR Not Detected (NotDetected); Campylobacter PCR Not Detected (NotDetected); Clostridium diff Toxin A/B PCR Not Detected (NotDetected); Cryptosporidium PCR Not Detected (NotDetected); Cyclospora cayetanensis PCR Not Detected (NotDetected); Entamoeba histolytica PCR Not Detected (NotDetected); Enteroaggregative E.coli(EAEC) Not Detected (NotDetected); Enteropathogenic E.coli (EPEC) Not Detected (NotDetected); Enterotoxigenic E.coli (ETEC) Not Detected (NotDetected); Giardia lamblia PCR Not Detected (NotDetected); Norovirus GI/GII PCR Not Detected (NotDetected); Plesiomonas shigelloides PCR Not Detected (NotDetected); Rotavirus A PCR Not Detected (NotDetected); Salmonella PCR Not Detected (NotDetected); Sapovirus PCR Not Detected (NotDetected); Shiga-like Toxin E.coli (STEC) Not Detected (NotDetected); Shigella/Enteroinvasive E.coli Not Detected (NotDetected); Vibrio cholerae PCR Not Detected (NotDetected); Vibrio species PCR Not Detected (NotDetected); Yersinia enterocolitica PCR Not Detected (NotDetected)
[2022-02-26] MEDS: PROMETHAZINE HCL 12.5 MG in SODIUM CHLORIDE 0.9% 50 ML IV PRN (13:07)
--- NOTE | 2022-02-26 15:12 | Electrocardiogram Report ---
Test Reason : Blood Pressure : / mmHG Vent. Rate : 070 BPM Atrial Rate : 070 BPM P-R Int : 156 ms QRS Dur : 094 ms QT Int : 454 ms P-R-T Axes : 055 009 050 degrees QTc Int : 490 ms Normal sinus rhythm Normal ECG When compared with ECG of 25-FEB-2022 11:28, No significant change was found Confirmed by Remington Corona ([id number]) on 02/26/2022 3:12:27 PM Referred By: REFERRED SELF Confirmed By:Remington Corona
[2022-02-26] MEDS: LOPERAMIDE HCL 2 MG CAP PO PRN (15:59)
--- NOTE | 2022-02-26 17:06 | Hospitalist Progress Note ---
Date of Service February 26, 2022 Assessment & Plan (1) Abdominal pain: (2) Acute kidney injury: (3) Nausea and vomiting: (4) Chest pain: (5) Diarrhea: (6) Hypoxemia: (7) Seizures: (8) Hyperlipidemia: (9) HTN (hypertension): Plan Per admitting service notes with addendum: Ms. Osman is a 56 year old female who presented with N/V/D, abdominal discomfort and chest pain. D-Dimer negative and no EKG changes. Trop trending. Abd CT ordered and acute symptom management. IV fluids and e-lyte replacement. Plan to return home after DC. Abdominal Pain Nausea and Vomiting, Diarrhea: Diffused abdominal tenderness since Wednesday Abdominal CT without contrast: 1. Several loops of mildly dilated small bowel, partially imaged on this abdominal CT. No transition point identified. The findings do not suggest a small bowel obstruction however if persistent symptoms, follow-up KUB or CT of the abdomen and pelvis is recommended. 2. Hepatic steatosis. Stool PCR panel: Negative Electrolytes replaced Hold off on antibiotics Start as needed Imodium Continue IV fluids Monitor closely, if no improvement tomorrow, will consult GI Acute Kidney Injury, resolved likely related to dehydration; current creatinine 2.36 Baseline Creatinine 10/24: 0.6 Given IV fluids Creatinine now 0.9 Chest Pain, acute coronary syndrome ruled out Resolved. Chest pain 8/10 across anterior chest D-Dimer negative 350 EMS gave 4 oral baby ASA and nitro spray SL which eliminated the chest pain Troponins negative No EKG changes, QTc 496 -- Likely secondary to nausea and vomiting, Protonix ordered Hypoxemia, resolved CXR negative Has H/O asthma - has Albuterol PRN or rescue at home. Has not used in over a month covid negative H/O Seizures: Sees Dr. Cespedes outpatient. Takes Trileptal; 900 mg PO BID; monitor renal function. Discussed with Pharmacy; no need to dose adjust yet unless CrCL < 30 or worsening urine output. Has not had any seizure active x3 years HTN: Resume lisinopril Hold prazosin Hyperlipidemia: Stable: Continue Atorvastatin and Fenofibrate Depression: Takes Cymbalta. Disposition: Code Status: Full code PCP: Dr. Peguero VTE Prophylaxis: Heparin SQ Next of Kin/Contact: Shonna Welsh (Niece): [phone] Plan to return home at [place] Admission and Anticipated Discharge Date Admission Date: February 25, 2022 Subjective Follow-up for diarrhea, etc. Seen resting in bed, comfortable, not in distress States she feels somewhat better today compared to yesterday Although diarrhea has returned today, 4 times since this morning, nonbloody Reports occasional nausea, only tolerating small amounts of clears today Reports some pain with p.o. diet No chest pain, shortness of breath, palpitations, dizziness No other symptoms Review of Systems Review of Systems: all noted and negative except for above Physical Exam Physical Exam: General- oriented x 3, not in distress, speaks in sentences with no effort or accessory muscle use Eyes- anicteric Neck- no JVD Lungs- clear breath sounds bilaterally, no rales/wheezes Heart- normal rate, regular rhythm; no murmurs Abdomen- normal bowel sounds, nondistended, soft, mild tenderness in all quadrants Extremities- no pretibial edema, no calf tenderness Neuro- alert, oriented x 3; no gross focal neurologic deficits Skin- warm & dry Results & Data Results & Data ([facility]) Vital Signs (Past 12 Hours) Vital Signs Temp Pulse Pulse Resp BP Pulse Ox O2 Del Method 02/26/22 16:21 36.8 C 67 20 144/84 H 95 Room Air 02/26/22 15:30 65 02/26/22 11:47 36.7 C 73 20 131/88 97 Room Air 02/26/22 09:40 74 02/26/22 09:22 Room Air 02/26/22 07:20 36.6 C 69 20 139/82 94 Room Air all noted and reviewed including below
[2022-02-26] MEDS: DULoxetine HCL 60 MG CAP PO SCH (20:03)
[2022-02-27] MEDS ORDERED: HYDROCORTISONE HC 2.5% CRM 30GM TUBE EXT PRN (01:38)
[2022-02-27] MEDS: LOPERAMIDE HCL 2 MG CAP PO PRN (02:48)
[2022-02-27] MEDS: NSS + 20MEQ KCL 20 MEQ/1,000 ML BAG IV SCH ×2 (04:32→10:56)
[2022-02-27] MEDS: HEPARIN SOD 5,000 UNIT/0.5 ML VIAL SQ SCH ×2 (05:32→14:10)
--- NOTE | 2022-02-27 08:03 | Electrocardiogram Report ---
Test Reason : Blood Pressure : / mmHG Vent. Rate : 066 BPM Atrial Rate : 066 BPM P-R Int : 146 ms QRS Dur : 098 ms QT Int : 444 ms P-R-T Axes : 057 018 055 degrees QTc Int : 465 ms Normal sinus rhythm Low voltage QRS Borderline ECG When compared with ECG of 26-FEB-2022 03:26, No significant change was found Confirmed by Remington Corona ([id number]) on 02/27/2022 8:03:15 AM Referred By: REFERRED SELF Confirmed By:Remington Corona
[2022-02-27] MEDS: CETIRIZINE HCL 10 MG TABLET PO SCH (08:38)
[2022-02-27] MEDS: OXcarbazepine 150 MG TABLET PO SCH (08:38)
[2022-02-27] MEDS: NICOTINE 21 MG/24 HR TDSY TD SCH (08:39)
[2022-02-27 09:17] LABS: Basophils # (auto) 0.03 K/uL (0-0.2); Basophils % (auto) 0.5 %; Eosinophils # (auto) 0.13 K/uL (0-0.50); Eosinophils % (auto) 2.1 %; Hematocrit (blood only) 32.1 % (34.1-44.9); Hemoglobin 10.6 g/dl (12.0-16.0); Immature Granulocytes # (auto) 0.06 K/uL (0.00-0.02); Lymphocytes # (auto) 2.59 K/uL (1.2-3.4); Mean Corpuscular Hemoglobin 30.1 pg (25.0-34.0); Mean Corpuscular Volume 91.2 fL (80.0-100.0); Mean Platelet Volume 9.4 fL (9.4-12.3); Monocytes # (auto) 0.52 K/uL (0.24-0.82); Monocytes % (auto) 8.4 %; Neutrophils # (auto) 2.83 K/uL (1.4-6.5); Platelet Count 209 K/uL (130-400); RDW Coefficient of Variation 12.2 % (11.5-14.5); Red Blood Count 3.52 M/uL (3.93-5.22); White Blood Count 6.16 K/ul (4.8-10.8)
[2022-02-27 09:44] LABS: Albumin Globulin Ratio 1.5 (0.9-2); Albumin Level 3.5 gm/dl (3.4-5.0); BUN Creatinine Ratio 20.3 (10-20); Bilirubin,Total 0.3 mg/dl (0.2-1.0); Calcium 7.8 mg/dl (8.5-10.1); Creatinine Clr Calc Pharmacy 119.5 ml/min; Est GFR (Non-African American) 96.6 ml/min; Globulin 2.3 gm/dl (2.5-4.0); Magnesium 1.9 mg/dl (1.7-2.4); Phosphorus 2.6 mg/dl (2.5-4.9); Potassium 4.1 mmol/L (3.5-5.1); Total Protein 5.8 gm/dl (6.0-8.3)
[2022-02-27] MEDS: PANTOprazole 40 MG in SYRINGE 0 ML IV SCH (10:56)
[2022-02-27] MEDS ORDERED: CALCIUM CARBONATE 1250MG TAB PO SCH (11:30)
[2022-02-27] MEDS ORDERED: PRAZOSIN HCL 1 MG CAP PO ONE (11:45)
[2022-02-27] MEDS ORDERED: lisinopril 20 MG TAB PO ONE (12:00)
--- NOTE | 2022-02-27 13:51 | Ultrasound Report ---
RIGHT UPPER EXTREMITY VENOUS DOPPLER ULTRASOUND CLINICAL HISTORY: pain, swelling, r/o dvt COMPARISON STUDY: No previous studies for comparison. TECHNIQUE: Sonography of the deep venous system of the right upper extremity was performed. FINDINGS: The right internal jugular, subclavian, axillary, brachial, radial and ulnar veins are hernández nt. The right cephalic and basilic veins are patent. No venous thrombus is identified within the righ t upper extremity. IMPRESSION: No deep venous within the right upper extremity. ACT 112: Negative or not required by law. Electronically signed by: Bert Mccormick M.D. 02/27/2022 1:49 PM
--- NOTE | 2022-02-27 14:14 | Hospitalist Progress Note ---
Date of Service February 27, 2022 Assessment & Plan (1) Abdominal pain: (2) Acute kidney injury: (3) Nausea and vomiting: (4) Chest pain: (5) Diarrhea: (6) Hypoxemia: (7) Seizures: (8) Hyperlipidemia: (9) HTN (hypertension): Plan Per admitting service notes with addendum: Ms. Osman is a 56 year old female who presented with N/V/D, abdominal discomfort and chest pain. D-Dimer negative and no EKG changes. Trop trending. Abd CT ordered and acute symptom management. IV fluids and e-lyte replacement. Plan to return home after DC. Abdominal Pain Nausea and Vomiting, Diarrhea Diffused abdominal tenderness since Wednesday Abdominal CT without contrast: 1. Several loops of mildly dilated small bowel, partially imaged on this abdominal CT. No transition point identified. The findings do not suggest a small bowel obstruction however if persistent symptoms, follow-up KUB or CT of the abdomen and pelvis is recommended. 2. Hepatic steatosis. Stool PCR panel: Negative Electrolytes replaced resolved with PRN Imodium Acute Kidney Injury, resolved likely related to dehydration; current creatinine 2.36 Baseline Creatinine 10/24: 0.6 Given IV fluids Creatinine now 0.9 Chest Pain, acute coronary syndrome ruled out Resolved. Chest pain 8/10 across anterior chest D-Dimer negative 350 EMS gave 4 oral baby ASA and nitro spray SL which eliminated the chest pain Troponins negative No EKG changes, QTc 496 -- Likely secondary to nausea and vomiting, Protonix ordered, resolved Hypoxemia, resolved CXR negative Has H/O asthma - has Albuterol PRN or rescue at home. Has not used in over a month covid negative H/O Seizures: Sees Dr. Cespedes outpatient. Takes Trileptal; 900 mg PO BID; monitor renal function. Discussed with Pharmacy; no need to dose adjust yet unless CrCL < 30 or worsening urine output. Has not had any seizure active x3 years HTN: Resume lisinopril and prazosin Hyperlipidemia: Stable: Continue Atorvastatin and Fenofibrate Depression: Takes Cymbalta. Rash chest, arms chronic per patient, intermittent Zyrtec daily outpatient ff up Disposition: Code Status: Full code PCP: Dr. Peguero VTE Prophylaxis: Heparin SQ Next of Kin/Contact: Shonna Welsh (Niece): [phone] d/c home ff up with PCP in 1 week plan of care discussed with patient in detail and at length all questions answered she is understanding, agreeable, comfortable with the plan of care Admission and Anticipated Discharge Date Admission Date: February 25, 2022 Subjective ff up for nausea/vomiting, diarrhea, etc seen resting in bed, comfortable sitting up, in good spirits states she feels better overall diarrhea, abdominal pain, nausea/vomiting, resolved no chest pain, dyspnea, palpitations, dizziness has mild pain, erythema on the r antecubital fossa area no other symptoms Review of Systems Review of Systems: all noted and negative except for above Physical Exam Physical Exam: General- oriented x 3, not in distress, speaks in sentences with no effort or accessory muscle use Eyes- anicteric Neck- no JVD Lungs- clear BS bilaterally, no rales/wheezes Heart- normal rate, regular rhythm; no murmurs Abdomen- normal bowel sounds, nondistended, soft, nontender Extremities- no pretibial edema, no calf tenderness R antecubital fossa- small area of erythema, somewhat raised, non tender Neuro- alert, oriented x 3; no gross focal neurologic deficits Skin- warm & dry Results & Data Results & Data ([facility]) Vital Signs (Past 12 Hours) Vital Signs Temp Pulse Pulse Pulse Pulse Resp BP 02/27/22 12:00 36.6 C 72 20 159/82 H 02/27/22 09:10 67 02/27/22 08:00 36.9 C 66 16 163/90 H 02/27/22 08:00 36.9 C 66 16 163/90 H 02/27/22 07:38 02/27/22 02:54 36.7 C 67 22 168/91 H Pulse Ox O2 Del Method 02/27/22 12:00 96 Room Air 02/27/22 09:10 02/27/22 08:00 95 Room Air 02/27/22 08:00 95 Room Air 02/27/22 07:38 Room Air 02/27/22 02:54 96 Room Air all noted and reviewed including below
--- NOTE | 2022-02-27 14:23 | Discharge Summary ---
Date of Service February 27, 2022 Admission HPI Per Admitting Provider Ms. Osman is a 56 year old female who presented to the [facility] ED from Urgent Care with N/V/D and associated chest pain. The patient states that her abdominal discomfort started on Wednesday evening around 1800 and by midnight Wednesday morning 02/24, she had been experiencing vomiting and diarrhea reportedly 12 times on Wednesday. She reports dark green. Her last episode of emesis was Friday 02/23 at 0400. Currently still having diarrhea. She has not eaten anything, but is able to keep Gatorade and some water down. This morning, she got up around 0700 and she started to feel that an 'elephant was sitting on her chest' and was having tightness in her chest. She then proceeded to urgent care and they sent her to [facility] via EMS. EMS gave 4 oral baby ASA and nitro spray SL which eliminated the chest pain. She was feeling some nausea but the Zofran has helped. She has not had any vomiting since she has been here. She has an additional PMH that includes seizures, HLD, Depression, HTN, obesity, and tobacco use. She has not had a seizure for at least 3 years. She does follow with Dr. Cespedes with Neurology. Currently, she is lying in her bed, in no apparent distress. She denies VALENCIA, dizziness, palpitations, chest pain, palpitations, visual or hearing changes, swelling, wheezing. Patient will be admitted under medicine services for further evaluation and management. Please see A/P for further details. Admission Exam Per Admitting Provider Neuro: AAOx4, PERRLA, no aphagia, memory changes, CNII-XII grossly intact HEENT: head normocephalic, moist mucus membranes CV: S1/S2, (-) M/G/R, (-) edema, cap refill < 3 seconds Resp: Lungs CTA in all coreas. On RA GI: Abdomen large S/distended, tender with palpation in lower quadrants, Ax4 bowel sounds, (-) CVA tenderness Musculoskeletal: 5/5 B/L UE strength, 5/5 B/L LE strength. No gait disturbance Skin: (-) rashes , (-) erythema. Psych: euthymic mood Principal Diagnosis NAUSEA, VOMITING, DIARRHEA Discharge Exam General- oriented x 3, not in distress, speaks in sentences with no effort or accessory muscle use Eyes- anicteric Neck- no JVD Lungs- clear BS bilaterally, no rales/wheezes Heart- normal rate, regular rhythm; no murmurs Abdomen- normal bowel sounds, nondistended, soft, nontender Extremities- no pretibial edema, no calf tenderness R antecubital fossa- small area of erythema, somewhat raised, non tender Neuro- alert, oriented x 3; no gross focal neurologic deficits Skin- warm & dry Discharge Data Allergies Allergy/AdvReac Type Severity Reaction Status Date / Time bee venom protein (honey bee) Allergy Severe Anaphylaxis Unverified 02/25/22 14:33 metronidazole Allergy Severe TOUNGE Verified 02/25/22 14:33 SWELLING Penicillins Allergy Severe Anaphylaxis Verified 02/25/22 14:40 aspirin Allergy Intermediate HIVES Verified 02/25/22 14:33 codeine Allergy Mild HIVES Verified 02/25/22 14:33 morphine Allergy Mild "TENSES Verified 02/25/22 14:33 NERVES" Consultations 02/25/22 13:17 ED Decision to Admit Stat Ordered Studies 02/25/22 14:18 CT abdomen wo con Routine COMPARISON STUDY: No previous studies for comparison. TECHNIQUE: Axial images of the abdomen were obtained without IV contrast. Au tomated exposure control was utilized for the study. A dose lowering technique was utilized adhering to the principles of ALARA. FINDINGS: Lung bases are unremarkable. No pneumatosis, free air or portal venous gas is identified within the abdomen. Evaluation of the abdomen is suboptimal on this unenhanced exam. There is no biliary ductal dilatation status post cholecystectomy. There is hepatic steatosis. The spleen, adrenal glands and pancreas are unremarkable as is the left kidney. There is no hydronephrosis. A water attenuation 3.3 cm lesion within the upper pole of the right kidney is sub optimally assessed on this unenhanced exam but likely reflects a cyst. There is no abdominal lymphadenopathy or ascites. There is mild dilatation of several small bowel loops, measuring up to 4.1 cm. The small bowel is partially imaged on this examination. No acute fracture or suspicious lesion within the visualized skeletal structures is present. IMPRESSION: 1. Several loops of mildly dilated small bowel, partially imaged on this abdominal CT. No transition point identified. The findings do not suggest a small bowel obstruction however if persistent symptoms, follow-up KUB or CT of the abdomen and pelvis is recommended. 2. Hepatic steatosis. ACT 112: Negative or not required by law. 02/27/22 13:02 US venous doppler UE RT Stat COMPARISON STUDY: No previous studies for comparison. TECHNIQUE: Sonography of the deep venous system of the right upper extremity was performed. FINDINGS: The right internal jugular, subclavian, axillary, brachial, radial and ulnar veins are patent. The right cephalic and basilic veins are patent. No venous thrombus is identified within the right upper extremity. IMPRESSION: No deep venous within the right upper extremity. ACT 112: Negative or not required by law. Hospital Course (1) Abdominal pain: (2) Acute kidney injury: (3) Nausea and vomiting: (4) Chest pain: (5) Diarrhea: (6) Hypoxemia: (7) Seizures: (8) Hyperlipidemia: (9) HTN (hypertension): Plan Per admitting service notes with addendum: Ms. Osman is a 56 year old female who presented with N/V/D, abdominal discomfort and chest pain. D-Dimer negative and no EKG changes. Abdominal Pain Nausea and Vomiting, Diarrhea Diffused abdominal tenderness since Wednesday Abdominal CT without contrast: 1. Several loops of mildly dilated small bowel, partially imaged on this abdominal CT. No transition point identified. The findings do not suggest a small bowel obstruction however if persistent symptoms, follow-up KUB or CT of the abdomen and pelvis is recommended. 2. Hepatic steatosis. Stool PCR panel: Negative Electrolytes replaced given IV NSS resolved with PRN Imodium Acute Kidney Injury, resolved likely related to dehydration; current creatinine 2.36 Baseline Creatinine 10/24: 0.6 Given IV fluids Creatinine now 0.9 Chest Pain, acute coronary syndrome ruled out Resolved. Chest pain 8/10 across anterior chest D-Dimer negative 350 EMS gave 4 oral baby ASA and nitro spray SL which eliminated the chest pain Troponins negative No EKG changes, QTc 496 -- Likely secondary to nausea and vomiting, Protonix ordered, resolved Hypoxemia, resolved CXR negative Has H/O asthma - has Albuterol PRN or rescue at home. Has not used in over a month covid negative Abnormal CT abdomen/pelvis findings: Please refer to full report in the Ordered Studies section above A water attenuation 3.3 cm lesion within the upper pole of the right kidney is suboptimally assessed on this unenhanced exam but likely reflects a cyst. Further work up, management, and ff up as outpatient H/O Seizures: Sees Dr. Cespedes outpatient. Takes Trileptal; 900 mg PO BID; monitor renal function. Discussed with Pharmacy; no need to dose adjust yet unless CrCL < 30 or worsening urine output. Has not had any seizure episode x3 years HTN: Resume lisinopril and prazosin Hyperlipidemia: Stable: Continue Atorvastatin and Fenofibrate Depression: Takes Cymbalta. Rash chest, arms chronic per patient, intermittent Zyrtec daily outpatient ff up Disposition: Code Status: Full code PCP: Dr. Peguero VTE Prophylaxis: Heparin SQ Next of Kin/Contact: Shonna Welsh (Niece): [phone] d/c home ff up with PCP in 1 week plan of care discussed with patient in detail and at length all questions answered she is understanding, agreeable, comfortable with the plan of care Total Time Total Time Spent Total Time Spent (In Minutes): >30 minutes Discharge Plan Discharge Items Patient Disposition: Home - Self-Care Reason For Visit: ABDOMINAL AND CHEST PAIN Discharge Diagnosis: NAUSEA, VOMITING, DIARRHEA, RESOLVED Activity: Resume your previous activity Activity Comment: GRADUALLY TOLERATED Non-emergency contact: Primary Care Provider Call non-emergency contact if: you have any medication questions, your symptoms worsen, your pain is not controlled, your pain is worsening, your pain is unusual for you, your pain is concerning for you and you have a fever Follow-up/Referrals: Mark Orozco PA-C [Primary Care Provider] - Diet: Heart Healthy, Low Fiber and Low Fat Diet Comment: AVOID DAIRY PRODUCTS Addtl Attending Provider Instructions: PLEASE REFER TO YOUR NEW MEDICATION LIST AND FOLLOW INSTRUCTIONS CAREFULLY. YOUR NEW MEDICATIONS INCLUDE: ZYRTEC- for rash, itching PLEASE CALL YOUR PRIMARY CARE PHYSICIAN OR RETURN TO THE ER IF WITH WORSENING OF SYMPTOMS, INCLUDING diarrhea, nausea, vomiting, abdominal pain, fever/chills, shortness of breath. FOLLOW UP WITH PRIMARY CARE PHYSICIAN in 1 week. Pending Studies at Discharge: No Stand-Alone Forms: My [address], Smoking Cessation Medications and DC Order Prescriptions: New cetirizine 10 mg Tablet 10 mg PO QAM 14 Days Qty: 14 0RF Continued atorvastatin 10 mg tablet 10 mg PO HS prazosin 1 mg capsule 1 mg PO HS lisinopril 20 mg tablet 20 mg PO HS oxcarbazepine 300 mg tablet 900 mg PO BID nicotine 21 mg/24 hr patch 24 hour 21 mg transdermal DAILY nystatin 100,000 unit/gram powder 1 applic TOPICAL BID PRN (Reason: yeast infection) duloxetine 60 mg capsule,delayed release(DR/EC) 120 mg PO HS fenofibrate 160 mg tablet 160 mg PO HS Discharge Orders: Discharge Order (Routine); Ordered 02/27/22 Ordered By: Cole Richards Admission Data Admit Date/Time: 02/25/22 13:09 Attending Provider: Cole Richards Admit Provider: Cole Rihcards Primary Care Provider: Mark Orozco Other Providers: Cole Richards
[2022-02-27] MEDS ORDERED: lisinopril 20 MG TAB PO SCH (21:00)
== END 2022-02-27 15:24 | disposition home or self-care (01) ==
LOC: ED 11:14 → INTOOBSV 13:09 → 2S 13:09